=== PATIENT | male | born 1975 | race Caucasian/White ===

== ENCOUNTER 2022-08-01 06:47 | Emergency (ER) | payer MEDICAID ==
--- NOTE | 2022-08-01 07:11 | ERPHSYRPT ---
- History of Present Illness Time Seen by Provider: 08/01/22 07:05 Source: patient Exam Limitations: no limitations Physician History: This is a 47-year-old white male who is right-handed and has known shoulder issues. He was offered surgery in the past to repair his shoulders but declined. He had been on tramadol for quite some time and was doing okay until yesterday when he was moving furniture and then fell onto his right outstretched arm when he fell off the porch. He has pain in the region of his right shoulder right humerus and right wrist. He has pain that also shoots into the right chest and down the right arm he has full range of motion but it hurts to move. Patient states the tramadol helped him but he does not want to be on it chronically. He also stated that the steroids to the emergency room and stated that his mother does not have a license and his mother's is legally blind so she cannot drive. Did help him. Patient drove himself. Occurred: yesterday Method of Injury: fell Quality: constant, aching, sharpness, stabbing Severity of Pain-Max: moderate Severity of Pain-Current: moderate Extremities Pain Location: shoulder: right, arm: right, wrist: right Modifying Factors: Improves With: movement Associated Symptoms: none Allergies/Adverse Reactions: No Known Drug Allergies Allergy (Verified 08/01/22 07:00) Travel Risk - International Travel Have you traveled outside of the country in past 3 weeks: No - Coronavirus Screening Are you exhibiting any of the following symptoms?: No Close contact with a COVID-19 positive Pt in past 14-21 Days: No - Review of Systems Constitutional: No Symptoms Eyes: No Symptoms Ears, Nose, & Throat: No Symptoms Respiratory: No Symptoms Cardiac: Chest Pain (Right upper outer chest near the right shoulder) Abdominal/Gastrointestinal: No Symptoms Genitourinary Symptoms: No Symptoms Musculoskeletal: Injury (Right shoulder/right upper extremity) Skin: No Symptoms Neurological: No Symptoms Psychological: No Symptoms Endocrine: No Symptoms Hematologic/Lymphatic: No Symptoms Immunological/Allergic: No Symptoms All Other Systems: Reviewed and Negative - Past Medical History Pertinent Past Medical History: No - Past Surgical History Past Surgical History: Yes - Nursing Vital Signs Nursing Vital Signs: Initial Vital Signs Temperature 97.7 F 08/01/22 07:01 Pulse Rate 95 H 08/01/22 07:01 Respiratory Rate 18 08/01/22 07:01 Blood Pressure 153/85 08/01/22 07:01 O2 Sat by Pulse Oximetry 99 08/01/22 07:01 Pain Scale Pain Intensity 9 - Physical Exam General Appearance: no apparent distress, alert Eyes, Ears, Nose, Throat Exam: normal ENT inspection, moist mucous membranes Neck Exam: normal inspection, non-tender, supple, full range of motion Cardiovascular/Respiratory Exam: chest non-tender, normal breath sounds, regular rate/rhythm, heart sounds normal, no ecchymosis, no respiratory distress Abdominal Exam: non-tender Back Exam: normal inspection, normal range of motion, No CVA tenderness, No vertebral tenderness Shoulder Exam: normal inspection, bone tenderness, limited ROM (Right shoulder Secondary to pain), soft tissue tenderness Elbow/Forearm Exam: normal inspection, non-tender, no evidence of injury Wrist Exam: normal inspection, no evidence of injury, soft tissue tenderness (Right wrist) Hand Exam: normal inspection, non-tender, no evidence of injury, normal ROM Neuro/Tendon Exam: normal sensation, normal motor functions, normal tendon functions Mental Status Exam: alert, oriented x 3, cooperative Skin Exam: normal color, warm, dry SpO2 Interpretation: normal O2 Delivery: Room Air - Course Nursing assessment & vital signs reviewed: Yes Ordered Tests: Active Orders 24 hr Category Date Time Status EKG-ER Only STAT Care 08/01/22 07:21 Active HUMERUS Stat Exams 08/01/22 07:22 Taken SHOULDER Stat Exams 08/01/22 07:12 Taken WRIST (MIN 3 VIEWS) Stat Exams 08/01/22 07:22 Taken CBC W DIFF Stat Lab 08/01/22 07:25 Completed CMP Stat Lab 08/01/22 07:25 Completed TROPONIN Q4H Lab 08/01/22 07:25 Completed TROPONIN Q4H Lab 08/01/22 11:15 Ordered TROPONIN Q4H Lab 08/01/22 15:15 Ordered Lab/Rad Data: Laboratory Result Diagrams 08/01/22 07:25 08/01/22 07:25 Laboratory Results 08/01/22 08/01/22 08/01/22 Range/Units 07:25 07:25 07:25 WBC 15.5 H (4.0-10.5) x10^3/uL RBC 4.95 (4.1-5.6) x10^6/uL Hgb 16.4 (12.5-18.0) g/dL Hct 47.3 (42-50) % MCV 95.6 (78-100) fL MCH 33.1 H (26-32) pg MCHC 34.7 (32-36) g/dL RDW 12.5 (11.5-14.0) % Plt Count 399 (150-450) x10^3/uL MPV 8.9 (7.5-11.0) fL Gran % 67.1 H (36.0-66.0) % Immature Gran % (Auto) 0.3 (0.00-0.4) % Nucleat RBC Rel Count 0.0 (0.00-0.1) % Eos # (Auto) 0.23 (0-0.5) x10^3/uL Immature Gran # (Auto) 0.05 H (0.00-0.03) x10^3u/L Absolute Lymphs (auto) 3.54 (1.0-4.6) x10^3/uL Absolute Monos (auto) 1.20 (0.0-1.3) x10^3/uL Absolute Nucleated RBC 0.00 (0.00-0.01) x10^3u/L Lymphocytes % 22.9 L (24.0-44.0) % Monocytes % 7.7 (0.0-12.0) % Eosinophils % 1.5 (0.00-5.0) % Basophils % 0.5 (0.0-0.4) % Absolute Granulocytes 10.40 H (1.4-6.9) x10^3/uL Basophils # 0.07 (0-0.4) x10^3/uL Sodium 137 (137-145) mmol/L Potassium 4.0 (3.5-5.1) mmol/L Chloride 104 (98-107) mmol/L Carbon Dioxide 25 (22-30) mmol/L Anion Gap 12.1 (5-15) MEQ/L BUN 9 (9-20) mg/dL Creatinine 0.84 (0.66-1.25) mg/dL Estimated GFR > 60.0 ML/MIN Glucose 105 (74-106) mg/dL Calcium 9.2 (8.4-10.2) mg/dL Total Bilirubin 0.60 (0.2-1.3) mg/dL AST 22 (17-59) U/L ALT 13 (0-50) U/L Alkaline Phosphatase 91 (38-126) U/L Troponin I < 0.012 (0.000-0.034) ng/mL Serum Total Protein 7.3 (6.3-8.2) g/dL Albumin 4.4 (3.5-5.0) g/dL - Progress Progress: unchanged Progress Note: 08/01/22 09:10 X-ray of right wrist shows no acute fracture or dislocation. X-ray of right humerus reveals no acute fracture or dislocation. X-ray of right shoulder reveals no acute fracture or dislocation. Counseled pt/family regarding: diagnosis, need for follow-up, rad results - Departure Departure Disposition: Home Clinical Impression: Right shoulder pain Condition: Stable Critical Care Time: No Referrals: DOCTOR,NO FAMILY [Primary Care Provider] - Follow up/PCP as directed Additional Instructions: Wear sling for comfort. Take your medication as prescribed. Follow-up in [facility] orthopedic clinic Sunday through Sunday 8 AM to 10 AM for further evaluation and management. You do not need an appointment. It is a walk-in clinic. Prescriptions: Tramadol HCl 50 mg [Ultram 50 mg] 50 mg PO TID PRN #12 tablet PRN Reason: Moderate Pain
[2022-08-01 07:15] VITALS: O2SAT 99
[2022-08-01 07:30] LABS: Basophil (Absolute #) 0.07 x10^3/uL (0-0.4); Eosinophil % 1.5 % (0.00-5.0); Eosinophil (Absolute #) 0.23 x10^3/uL (0-0.5); Hematocrit 47.3 % (42-50); Hemoglobin 16.4 g/dL (12.5-18.0); Lymphocyte (Absolute #) 3.54 x10^3/uL (1.0-4.6); Lymphocytes % 22.9 % (24.0-44.0); Mean Cell Volume 95.6 fL (78-100); Mean Corpuscular Hemoglobin 33.1 pg (26-32); Mean Corpuscular Hgb Concent. 34.7 g/dL (32-36); Mean Platelet Volume 8.9 fL (7.5-11.0); Monocytes % 7.7 % (0.0-12.0); Neutrophil % 67.1 % (36.0-66.0); Platelet Count 399 x10^3/uL (150-450); Red Blood Count 4.95 x10^6/uL (4.1-5.6); Red Cell Distribution Width 12.5 % (11.5-14.0); White Blood Count 15.5 x10^3/uL (4.0-10.5)
[2022-08-01 08:00] LABS: ALBUMIN 4.4 g/dL (3.5-5.0); ALKALINE PHOSPHATASE 91 U/L (38-126); ANION GAP 12.1 MEQ/L (5-15); BLOOD UREA NITROGEN 9 mg/dL (9-20); CHLORIDE 104 mmol/L (98-107); Calcium 9.2 mg/dL (8.4-10.2); Carbon Dioxide 25 mmol/L (22-30); Creatinine 1 0.84 mg/dL (0.66-1.25); EST GLOMERULAR FILTRATION RATE > 60.0 ML/MIN; Glucose 105 mg/dL (74-106); SGOT/AST 22 U/L (17-59); SGPT/ALT 13 U/L (0-50); SODIUM 137 mmol/L (137-145); Total Protein 7.3 g/dL (6.3-8.2)
[2022-08-01 08:09] VITALS: BP 150/80; PULSE 90
--- NOTE | 2022-08-01 09:17 | XRAY ---
Indication: Pain following fall. Comparison: None 3 view right shoulder demonstrates moderate acromioclavicular degenerative changes. No other bony, articular, or soft tissue abnormalities.
--- NOTE | 2022-08-01 09:17 | XRAY ---
Indication: Pain following fall. Comparison: None 2 view right humerus demonstrates moderate acromioclavicular degenerative changes. No other bony, articular, or soft tissue abnormalities.
--- NOTE | 2022-08-01 09:18 | XRAY ---
Indication: Pain following fall. Comparison: None 3 view right wrist obtained. No bony, articular, or soft tissue abnormalities.
== END 2022-08-01 09:24 | disposition home or self-care (01) ==
LOC: ED 06:47
DX: M25.511 Pain in right shoulder (principal); W17.89XA Other fall from one level to another, initial encounter; R07.9 Chest pain, unspecified; M79.601 Pain in right arm; M25.531 Pain in right wrist; Z79.891 Long term (current) use of opiate analgesic
CPT/HCPCS: 36415; 73030; 73060; 73110; 80053; 84484; 85025; 93005; 99283

== ENCOUNTER 2023-05-05 00:21 | Emergency (ER) | payer MEDICARE ==
[2023-05-05 00:28] VITALS: TEMP 97.5; O2SAT 97
[2023-05-05] MEDS ORDERED: TORAdol 30 mg Injection IM ONE (00:43)
[2023-05-05] MEDS ORDERED: TORAdol 30 mg Injection ONE (00:46)
--- NOTE | 2023-05-05 00:49 | ERPHSYRPT ---
- History of Present Illness Source: patient Exam Limitations: no limitations Patient Subjective Stated Complaint: rt jaw pain and tooth pain Triage Nursing Assessment: pt ambulated into ER without diff. Pt c/o rt lower back tooth pain and rt jaw pain x2 days. Pt c/o swelling to rt jaw from tooth and has sharp, throbbing pain. Pt has not reached out to a dentist and states, "I do not have one". Physician History: 48 yo WM w R inferior dental pain x 2 days. Pain is 8/10 and throbbing. The tooth has been hurting him for several years. He denies trauma/fever. Timing/Duration: days (2 days/chronic) Severity: severe ENT Location: dental Prearrival Treatment: over the counter meds Modifying Factors: Improves With: other (Chewing) Associated Symptoms: denies symptoms Allergies/Adverse Reactions: naproxen Adverse Reaction (Intermediate, Verified 05/05/23 00:37) Fatigue Hx Tetanus, Diphtheria Vaccination/Date Given: Yes Hx Influenza Vaccination/Date Given: No Hx Pneumococcal Vaccination/Date Given: No Travel Risk - International Travel Have you traveled outside of the country in past 3 weeks: No - Coronavirus Screening Are you exhibiting any of the following symptoms?: No Close contact with a COVID-19 positive Pt in past 14-21 Days: No - Vaccine Status Have you recieved a Covid-19 vaccination: No - Review of Systems Constitutional: No Symptoms Eyes: No Symptoms Respiratory: No Symptoms Cardiac: No Symptoms Abdominal/Gastrointestinal: No Symptoms Genitourinary Symptoms: No Symptoms Musculoskeletal: No Symptoms Skin: No Symptoms Neurological: No Symptoms Psychological: No Symptoms Endocrine: No Symptoms Hematologic/Lymphatic: No Symptoms Immunological/Allergic: No Symptoms - Past Medical History Pertinent Past Medical History: Yes Neurological History: No Pertinent History ENT History: No Pertinent History Cardiac History: No Pertinent History Respiratory History: No Pertinent History Endocrine Medical History: No Pertinent History Musculoskeletal History: Arthritis, Other GI Medical History: No Pertinent History History: No Pertinent History Psycho-Social History: No Pertinent History Male Reproductive Disorders: No Pertinent History Other Medical History: rotator cuff - Past Surgical History Past Surgical History: Yes Musculoskeletal: Other Other Surgical History: Left hand - Social History Smoking Status: Current every day smoker How long have you smoked: 30 yrs Exposure to second hand smoke: No Drug Use: none Patient Lives Alone: No - Nursing Vital Signs Nursing Vital Signs: Initial Vital Signs Temperature 97.5 F 05/05/23 00:27 Pulse Rate 58 L 05/05/23 00:27 Respiratory Rate 18 05/05/23 00:27 Blood Pressure 172/91 05/05/23 00:27 O2 Sat by Pulse Oximetry 97 05/05/23 00:27 Pain Scale Pain Intensity 8 Mookie/Hypertensive - Physical Exam General Appearance: no apparent distress Eye Exam: bilateral eye: normal inspection, PERRL, EOMI Ear Exam: bilateral ear: auricle normal, canal normal, TM normal Nasal Exam: normal inspection Throat Exam: pharynx normal, dental tenderness (R inferior 2nd molar fractured and TTP/Great airway) Neck Exam: normal inspection, non-tender, supple Cardiovascular/Respiratory Exam: normal breath sounds, regular rate/rhythm, heart sounds normal Abdominal Exam: non-tender, soft Neurologic Exam: alert, oriented x 3, a class lineman II-XII nml as tested, normal mood/affect, nml cerebellar function, nml station & gait, sensation nml Skin Exam: normal color, warm, dry SpO2 Interpretation: normal SpO2: 97 O2 Delivery: Room Air - Course Nursing assessment & vital signs reviewed: Yes Ordered Tests: Medication Summary Discontinued Medications Generic Name Dose Route Start Last Admin Trade Name Freq PRN Reason Stop Dose Admin Ketorolac Tromethamine 30 mg 05/05/23 00:43 05/05/23 00:47 Ketorolac Tromethamine 30 Mg/Ml Inj IM 05/05/23 00:44 30 mg STAT ONE Administration Ketorolac Tromethamine Confirm 05/05/23 00:46 Ketorolac Tromethamine 30 Mg/Ml Inj Administered 05/05/23 00:47 Dose 30 mg .ROUTE .STK-MED ONE - Progress Progress Note: 05/05/23 01:39 Nursing note and vital signs reviewed No food or housing insecurities noted 30mg IM Toradol Pt advised to f/u w a dentist SUSANNAH for definitive therapy Counseled pt/family regarding: diagnosis, need for follow-up Medical Desision Making - Risk of complications The pt has a mod risk of morbidity or mortality based on: Need for prescription drug management - Departure Departure Disposition: Home Clinical Impression: Dental caries Condition: Stable Critical Care Time: No Referrals: DOCTOR,NO FAMILY [Primary Care Provider] - Follow up/PCP as directed Instructions: Tooth Decay, Adult (DC), Dental Pain (DC) Additional Instructions: Dentist SUSANNAH Start Penicillin Toradol as needed for pain Return to ER as needed Prescriptions: Penicillin V Potassium 500 mg PO TID 7 Days #21 tablet Ketorolac Trometh 10 mg Tab [TORAdol 10 MG TABLET] 10 mg PO TID PRN PRN #10 tablet PRN Reason: Pain
[2023-05-05 00:57] VITALS: BP 147/84; PULSE 52; RESP 16
== END 2023-05-05 01:00 | disposition home or self-care (01) ==
LOC: ED 00:21
DX: K02.9 Dental caries, unspecified (principal); K08.89 Other specified disorders of teeth and supporting structures; Z28.310 Unvaccinated for COVID-19; Z72.0 Tobacco use
CPT/HCPCS: 96372; 99282; J1885